=== PATIENT | female | born 1960 | race Caucasian/White ===

== ENCOUNTER 2021-07-18 15:00 | Inpatient (IN) | payer OTHER ==
[2021-07-18] MEDS ORDERED: Sodium Chloride 0.9% 10 ML Syringe FLUSH PRN (15:11)
[2021-07-18 16:58] LABS: CORONAVIRUS COVID-19 NAA POSITIVE (NEGATIVE)
[2021-07-18] MEDS ORDERED: Potassium Chloride 20 MEQ Tab.ER PO ONE (17:10)
[2021-07-18] MEDS ORDERED: Acetaminophen 325 MG Tab PO PRN (18:24)
[2021-07-18] MEDS ORDERED: REMDESIVIR 200 MG in Sodium Chloride 0.9% 250 ML IV ONE (18:24)
[2021-07-18] MEDS ORDERED: Ondansetron 4 MG/2 ML SDV IV PRN (18:24)
[2021-07-18] MEDS ORDERED: Dexamethasone 4 MG Tab PO SCH (18:30)
[2021-07-18] MEDS ORDERED: cefTRIAXone 2 GM in Sodium Chloride 0.9% 100 ML IV SCH (18:30)
[2021-07-18] MEDS ORDERED: Diphtheria,Pertussis(Acell),Tetanus Vaccine 0.5 ML Syringe IM ONE (18:52)
[2021-07-18] MEDS ORDERED: Azithromycin 500 MG in Sodium Chloride 0.9% 250 ML IV SCH (19:00)
[2021-07-18] MEDS ORDERED: FLU Vacc QS2021-22 36MOS UP/PF 60 MCG/0.5 ML Syringe IM ONE (19:00)
[2021-07-18] MEDS: methylPREDNISolone Sodium Succinate 40 MG/1 ML SDV IVPUSH SCH (19:53)
[2021-07-18] MEDS: Albuterol/Ipratropium 3.0-0.5 MG/3 ML Neb Soln NEB PRN (21:21)
[2021-07-18] MEDS: cefTRIAXone 2 GM in Sodium Chloride 0.9% 100 ML IV SCH (21:31)
[2021-07-18] MEDS: Azithromycin 500 MG in Sodium Chloride 0.9% 250 ML IV SCH (22:06)
[2021-07-18] MEDS ORDERED: Non-Formulary Medication 1 Each (Diclofenac Sodium 75 MG Tablet.Dr) PO SCH (22:15)
[2021-07-18] MEDS: Verapamil 80 MG Tab PO SCH (22:49)
[2021-07-18] MEDS: LORazepam 1 MG Tab PO PRN (22:49)
[2021-07-18] MEDS: Sulindac 200 MG Tab PO SCH (22:49)
[2021-07-18] MEDS: Albuterol 0.083% 2.5 MG/3 ML Neb Soln NEB PRN (23:57)
[2021-07-19] MEDS: methylPREDNISolone Sodium Succinate 40 MG/1 ML SDV IVPUSH SCH ×3 (02:40→17:14)
[2021-07-19] MEDS: LORazepam 1 MG Tab PO SCH (05:14)
[2021-07-19] MEDS: buPROPion 100 MG Tab.SR PO SCH (07:59)
[2021-07-19] MEDS: Sulindac 200 MG Tab PO SCH ×2 (08:07→22:17)
[2021-07-19] MEDS: Atenolol 25 MG Tab PO SCH (08:07)
[2021-07-19] MEDS: Verapamil 80 MG Tab PO SCH ×2 (08:08→22:16)
[2021-07-19] MEDS: Enoxaparin 40 MG/0.4 ML Syringe SUBCUT SCH (08:09)
[2021-07-19] MEDS: Nicotine 14 MG/24 Hr Patch TRDERM SCH (08:09)
[2021-07-19] MEDS ORDERED: Non-Formulary Medication 1 Each (Bupropion 100 MG Tablet) PO SCH (09:00)
[2021-07-19] MEDS: Sertraline 50 MG Tab PO SCH (09:59)
[2021-07-19] MEDS ORDERED: Magnesium Sulfate/Water 2 GM in Premix Bag 1 BAG IV ONE (10:57)
[2021-07-19] MEDS: RAMIPRIL 10 MG PO SCH ×2 (13:19→22:15)
[2021-07-19] MEDS: REMDESIVIR 100 MG in Sodium Chloride 0.9% 250 ML IV SCH (17:18)
[2021-07-19] MEDS: Albuterol 0.083% 2.5 MG/3 ML Neb Soln NEB PRN (21:47)
[2021-07-19] MEDS: Aspirin 81 MG Tab.EC PO SCH (22:14)
[2021-07-19] MEDS: cefTRIAXone 2 GM in Sodium Chloride 0.9% 100 ML IV SCH (22:18)
[2021-07-19] MEDS: LORazepam 1 MG Tab PO PRN (22:18)
[2021-07-19] MEDS: Azithromycin 500 MG in Sodium Chloride 0.9% 250 ML IV SCH (22:18)
[2021-07-20] MEDS: Albuterol/Ipratropium 3.0-0.5 MG/3 ML Neb Soln NEB PRN ×2 (00:21→09:37)
[2021-07-20] MEDS: Benzocaine/Cetylpyridinium/Menthol Lozenge MUCMEM PRN ×3 (01:05→23:04)
[2021-07-20] MEDS: methylPREDNISolone Sodium Succinate 40 MG/1 ML SDV IVPUSH SCH ×3 (01:06→17:04)
[2021-07-20] MEDS: LORazepam 1 MG Tab PO SCH ×2 (05:08→20:26)
[2021-07-20] MEDS ORDERED: RAMIPRIL 10 MG PO SCH (09:00)
[2021-07-20] MEDS: Sertraline 50 MG Tab PO SCH (09:04)
[2021-07-20] MEDS: buPROPion 100 MG Tab.SR PO SCH (09:05)
[2021-07-20] MEDS: Verapamil 80 MG Tab PO SCH ×2 (09:06→20:27)
[2021-07-20] MEDS: Atenolol 25 MG Tab PO SCH (09:06)
[2021-07-20] MEDS: Sulindac 200 MG Tab PO SCH ×2 (09:08→20:27)
[2021-07-20] MEDS: Nicotine 14 MG/24 Hr Patch TRDERM SCH (09:09)
[2021-07-20] MEDS: Enoxaparin 40 MG/0.4 ML Syringe SUBCUT SCH (09:09)
[2021-07-20] MEDS: Loperamide 2 MG Cap PO PRN (14:17)
[2021-07-20] MEDS: Albuterol/Ipratropium 3.0-0.5 MG/3 ML Neb Soln INH PRN ×2 (16:48→21:44)
[2021-07-20] MEDS: REMDESIVIR 100 MG in Sodium Chloride 0.9% 250 ML IV SCH (17:04)
[2021-07-20] MEDS: Potassium Chloride 20 MEQ Tab.ER PO SCH ×2 (17:05→20:27)
[2021-07-20] MEDS: Losartan 50 MG Tab PO SCH (17:05)
[2021-07-20] MEDS: Aspirin 81 MG Tab.EC PO SCH (20:27)
[2021-07-20] MEDS: Enoxaparin 100 MG/1 ML Syringe SUBCUT SCH (20:27)
[2021-07-20] MEDS: cefTRIAXone 2 GM in Sodium Chloride 0.9% 100 ML IV SCH (20:37)
[2021-07-20] MEDS ORDERED: LORazepam 1 MG Tab PO SCH (21:00)
[2021-07-20] MEDS: Azithromycin 500 MG in Sodium Chloride 0.9% 250 ML IV SCH (21:19)
[2021-07-20] MEDS: RAMIPRIL 10 MG PO SCH (21:19)
[2021-07-21] MEDS: methylPREDNISolone Sodium Succinate 40 MG/1 ML SDV IVPUSH SCH ×3 (02:41→17:41)
[2021-07-21] MEDS: LORazepam 1 MG Tab PO PRN (06:14)
[2021-07-21] MEDS: Sertraline 50 MG Tab PO SCH (09:22)
[2021-07-21] MEDS: buPROPion 100 MG Tab.SR PO SCH (09:22)
[2021-07-21] MEDS: Sulindac 200 MG Tab PO SCH (09:23)
[2021-07-21] MEDS: Losartan 50 MG Tab PO SCH (09:24)
[2021-07-21] MEDS: Verapamil 80 MG Tab PO SCH ×2 (09:25→20:52)
[2021-07-21] MEDS: Nicotine 14 MG/24 Hr Patch TRDERM SCH (09:25)
[2021-07-21] MEDS: Atenolol 25 MG Tab PO SCH (09:26)
[2021-07-21] MEDS: Enoxaparin 100 MG/1 ML Syringe SUBCUT SCH ×2 (09:27→20:53)
[2021-07-21] MEDS: Albuterol/Ipratropium 3.0-0.5 MG/3 ML Neb Soln INH PRN (13:31)
[2021-07-21] MEDS: Loperamide 2 MG Cap PO PRN (13:42)
[2021-07-21] MEDS: REMDESIVIR 100 MG in Sodium Chloride 0.9% 250 ML IV SCH (17:46)
[2021-07-21] MEDS: cefTRIAXone 2 GM in Sodium Chloride 0.9% 100 ML IV SCH (20:43)
[2021-07-21] MEDS: RAMIPRIL 10 MG PO SCH (20:51)
[2021-07-21] MEDS: Aspirin 81 MG Tab.EC PO SCH (20:51)
[2021-07-21] MEDS: LORazepam 1 MG Tab PO SCH (20:52)
[2021-07-21] MEDS: Azithromycin 500 MG in Sodium Chloride 0.9% 250 ML IV SCH (20:59)
[2021-07-21] MEDS: Albuterol 0.083% 2.5 MG/3 ML Neb Soln NEB PRN (21:11)
[2021-07-22] MEDS: methylPREDNISolone Sodium Succinate 40 MG/1 ML SDV IVPUSH SCH ×4 (01:53→23:07)
[2021-07-22] MEDS: LORazepam 1 MG Tab PO PRN (05:17)
[2021-07-22] MEDS: Pantoprazole 40 MG Tab.CR PO SCH (05:17)
[2021-07-22] MEDS: Sertraline 50 MG Tab PO SCH (09:43)
[2021-07-22] MEDS: Verapamil 80 MG Tab PO SCH ×2 (09:44→20:52)
[2021-07-22] MEDS: buPROPion 100 MG Tab.SR PO SCH (09:44)
[2021-07-22] MEDS: Losartan 100 MG Tab PO SCH (09:51)
[2021-07-22] MEDS: Enoxaparin 100 MG/1 ML Syringe SUBCUT SCH ×2 (09:52→20:52)
[2021-07-22] MEDS: Nicotine 14 MG/24 Hr Patch TRDERM SCH (09:52)
[2021-07-22] MEDS: Loperamide 2 MG Cap PO PRN (10:18)
[2021-07-22] MEDS: Albuterol/Ipratropium 3.0-0.5 MG/3 ML Neb Soln INH PRN (10:28)
[2021-07-22] MEDS: REMDESIVIR 100 MG in Sodium Chloride 0.9% 250 ML IV SCH (18:23)
[2021-07-22] MEDS: Albuterol 0.083% 2.5 MG/3 ML Neb Soln NEB PRN (20:44)
[2021-07-22] MEDS: cefTRIAXone 2 GM in Sodium Chloride 0.9% 100 ML IV SCH (20:52)
[2021-07-22] MEDS: Aspirin 81 MG Tab.EC PO SCH (20:53)
[2021-07-22] MEDS: RAMIPRIL 10 MG PO SCH (20:54)
[2021-07-22] MEDS: LORazepam 1 MG Tab PO SCH (20:54)
[2021-07-22] MEDS: Azithromycin 500 MG in Sodium Chloride 0.9% 250 ML IV SCH (21:38)
[2021-07-22] MEDS: hydrALAZINE 20 MG/ML SDV IVPUSH PRN (23:31)
[2021-07-23] MEDS: Pantoprazole 40 MG Tab.CR PO SCH (06:20)
[2021-07-23] MEDS: methylPREDNISolone Sodium Succinate 40 MG/1 ML SDV IVPUSH SCH ×3 (06:20→23:19)
[2021-07-23] MEDS: LORazepam 1 MG Tab PO PRN (06:20)
[2021-07-23] MEDS ORDERED: Magnesium Sulfate/Water 2 GM in Premix Bag 1 BAG IV ONE (09:00)
[2021-07-23] MEDS: Sertraline 50 MG Tab PO SCH (09:40)
[2021-07-23] MEDS: Potassium Chloride 20 MEQ Tab.ER PO SCH ×3 (09:41→14:20)
[2021-07-23] MEDS: Losartan 100 MG Tab PO SCH (09:42)
[2021-07-23] MEDS: Verapamil 80 MG Tab PO SCH ×2 (09:47→20:06)
[2021-07-23] MEDS: Nicotine 14 MG/24 Hr Patch TRDERM SCH (09:48)
[2021-07-23] MEDS: Enoxaparin 100 MG/1 ML Syringe SUBCUT SCH ×2 (09:48→20:08)
[2021-07-23] MEDS: buPROPion 100 MG Tab.SR PO SCH (09:51)
[2021-07-23] MEDS: Loperamide 2 MG Cap PO PRN (10:18)
[2021-07-23] MEDS: Albuterol 0.083% 2.5 MG/3 ML Neb Soln NEB PRN (11:18)
[2021-07-23] MEDS: hydrALAZINE 20 MG/ML SDV IVPUSH PRN ×2 (17:14→23:40)
[2021-07-23] MEDS: Aspirin 81 MG Tab.EC PO SCH (20:07)
[2021-07-23] MEDS: LORazepam 1 MG Tab PO SCH (20:08)
[2021-07-23] MEDS: Albuterol/Ipratropium 3.0-0.5 MG/3 ML Neb Soln INH PRN (20:32)
[2021-07-24] MEDS: Pantoprazole 40 MG Tab.CR PO SCH (05:11)
[2021-07-24] MEDS: LORazepam 1 MG Tab PO PRN (05:11)
[2021-07-24] MEDS: hydrALAZINE 20 MG/ML SDV IVPUSH PRN (05:34)
[2021-07-24] MEDS: methylPREDNISolone Sodium Succinate 40 MG/1 ML SDV IVPUSH SCH ×3 (06:18→21:25)
[2021-07-24] MEDS: Albuterol/Ipratropium 3.0-0.5 MG/3 ML Neb Soln INH PRN ×3 (08:30→22:29)
[2021-07-24] MEDS: Enoxaparin 100 MG/1 ML Syringe SUBCUT SCH ×2 (09:12→20:03)
[2021-07-24] MEDS: buPROPion 100 MG Tab.SR PO SCH (09:13)
[2021-07-24] MEDS: Potassium Chloride 20 MEQ Tab.ER PO SCH ×3 (09:13→16:20)
[2021-07-24] MEDS: Verapamil 80 MG Tab PO SCH (09:14)
[2021-07-24] MEDS: Sertraline 50 MG Tab PO SCH (09:16)
[2021-07-24] MEDS: Nicotine 14 MG/24 Hr Patch TRDERM SCH (09:19)
[2021-07-24] MEDS: Losartan 100 MG Tab PO SCH (09:24)
[2021-07-24] MEDS: amLODIPine 5 MG Tab PO SCH (09:25)
[2021-07-24] MEDS: Loperamide 2 MG Cap PO PRN (11:23)
[2021-07-24] MEDS ORDERED: Metoprolol Tartrate 25 MG Tab PO ONE (14:00)
[2021-07-24] MEDS: Aspirin 81 MG Tab.EC PO SCH (20:01)
[2021-07-24] MEDS: Metoprolol Tartrate 25 MG Tab PO SCH (20:01)
[2021-07-24] MEDS: LORazepam 1 MG Tab PO SCH (20:02)
[2021-07-25] MEDS: LORazepam 1 MG Tab PO PRN (05:50)
[2021-07-25] MEDS: Pantoprazole 40 MG Tab.CR PO SCH (05:51)
[2021-07-25] MEDS: methylPREDNISolone Sodium Succinate 40 MG/1 ML SDV IVPUSH SCH (05:51)
[2021-07-25] MEDS: Albuterol/Ipratropium 3.0-0.5 MG/3 ML Neb Soln INH PRN (07:42)
[2021-07-25 08:51] VITALS: BP 162/82
[2021-07-25] MEDS: Sertraline 50 MG Tab PO SCH (08:51)
[2021-07-25] MEDS: amLODIPine 5 MG Tab PO SCH (08:53)
[2021-07-25] MEDS: Losartan 100 MG Tab PO SCH (08:54)
[2021-07-25] MEDS: Metoprolol Tartrate 25 MG Tab PO SCH (08:54)
[2021-07-25] MEDS: buPROPion 100 MG Tab.SR PO SCH (08:55)
[2021-07-25] MEDS: Enoxaparin 100 MG/1 ML Syringe SUBCUT SCH (08:55)
[2021-07-25] MEDS: Nicotine 14 MG/24 Hr Patch TRDERM SCH (08:56)
[2021-07-25 08:57] VITALS: PULSE 70
== END 2021-07-25 13:50 | disposition home or self-care (01) | DRG 177 ==
LOC: JD.ED 15:00 → JD.MS 17:35
PROVIDERS: ADMIT Family Medicine; ATTEND Family Medicine
PROC: XW033E5 Introduction of Remdesivir Anti-infective into Peripheral Vein, Percutaneous Approach, New Technology Group 5 (ICD-10-PCS; principal; 2021-07-18)
PROC: 8E0ZXY6 Isolation (ICD-10-PCS; 2021-07-18)
DX: U07.1 COVID-19 (principal); J12.82 Pneumonia due to coronavirus disease 2019; J96.01 Acute respiratory failure with hypoxia; J44.1 Chronic obstructive pulmonary disease with (acute) exacerbation; J44.0 Chronic obstructive pulmonary disease with (acute) lower respiratory infection; F41.9 Anxiety disorder, unspecified; F17.210 Nicotine dependence, cigarettes, uncomplicated; I10 Essential (primary) hypertension; F32.89 Other specified depressive episodes; Z99.81 Dependence on supplemental oxygen; Z79.82 Long term (current) use of aspirin; Z79.899 Other long term (current) drug therapy
CPT/HCPCS: 0241U; 36415; 36600; 71045; 71045-26; 80053; 82803; 83735; 83880; 84100; 84484; 85025; 85379; 86140; 87040; 93005; 93010; 94640; 94667; 94668; 94762; 99285; 99285-25; A9270-GY; J0248; J0360; J0456; J0696; J1650; J2920; J3475; J7050; J7620-GY